=== PATIENT | male | born 1945 | race Caucasian/White ===

== ENCOUNTER 2024-07-22 18:53 | Inpatient (IN) | payer OTHER ==
[2024-07-22 20:58] LABS: BASO % 0.1 % (0-2.0); EOS % 0.2 % (0-4.5); HEMATOCRIT 29.2 % (35.4-49); HEMOGLOBIN 9.4 GM/dL (11.7-16.9); LYMPH % 4.6 % (8-40); MCH 28.7 pg (25.7-33.7); MCHC 32.3 g/dl (32.0-35.9); MEAN CELL VOLUME 88.9 fl (80-96); MEAN PLT VOLUME 7.7 fl (7.5-11.1); MONO % 6.2 % (3.8-10.2); NEUT % 88.9 % (42.8-82.8); PLATELET COUNT 157 10^3/uL (134-434); RBC 3.28 M/mm3 (4.00-5.60); RDW 17.8 % (11.9-15.9); WHITE BLOOD COUNT 6.7 K/mm3 (4.0-10.0)
[2024-07-22] MEDS ORDERED: CEFEPIME 2 GM/100 ML BAG IVPB ONE (21:04)
[2024-07-22] MEDS ORDERED: ALBUTEROL SO4 2.5/IPRATROPIUM 0.5 INH SOL 3 ML VIAL.NEB. NEB ONE ×2 (21:04→21:33)
[2024-07-22] MEDS ORDERED: methylPREDNISolone NA SUCC 125 MG/2 ML VIAL ONE (21:04)
[2024-07-22 21:06] LABS: INR 1.88 (0.83-1.09); PROTHROMBIN TIME (PATIENT) 21.2 SEC (9.7-13.0)
[2024-07-22 21:09] LABS: ACTIVATED PTT 33.8 SECONDS (25.2-36.5)
[2024-07-22] MEDS: methylPREDNISolone NA SUCC 125 MG/2 ML VIAL IVPUSH ONE (21:16)
[2024-07-22] MEDS: ALBUTEROL SO4 2.5/IPRATROPIUM 0.5 INH SOL 3 ML VIAL.NEB. NEB SCH (21:16)
[2024-07-22] MEDS: CEFEPIME HCL 2 GM VIAL (RESTRICTED TO ID) IVPB ONE (21:16)
[2024-07-22 21:18] LABS: VENOUS BASE EXCESS 0.4 mmol/L (-2-2); VENOUS O2 SATURATION 29.2 % (70-80); VENOUS PCO2 59.4 mmHg (38-52); VENOUS PH 7.287 (7.310-7.410)
[2024-07-22 21:24] LABS: POTASSIUM 5.2 mmol/L (3.5-5.1)
[2024-07-22 21:27] LABS: CALCIUM 8.1 mg/dL (8.5-10.1)
[2024-07-22 21:28] LABS: BLOOD UREA NITROGEN 45.4 mg/dL (7-18)
[2024-07-22 21:31] LABS: CREATININE 2.6 mg/dL (0.55-1.3)
[2024-07-22 21:32] LABS: BILIRUBIN,TOTAL 0.5 mg/dL (0.2-1); TOT PROT 6.5 g/dl (6.4-8.2)
[2024-07-22] MEDS ORDERED: ACETAMINOPHEN INJECTION 100 ML ONE (22:03)
[2024-07-22] MEDS: ACETAMINOPHEN 1000 MG/100 ML BAG IVPB ONE (22:06)
[2024-07-22] MEDS: VANCOMYCIN 1,000 MG in DEXTROSE 5%-WATER - 250 ML IVPB ONE (22:38)
[2024-07-22] MEDS ORDERED: VANCOMYCIN 1 GRAM (PRE-DOCKED) 1,000 MG/250 ML BAG IVPB ONE (22:38)
[2024-07-22 23:20] LABS: EPI CELLS 1 /uL (0-25.1); HYALINE CASTS 1 /uL (0-3.1); PH,URINE 5.5 (5.0-8.0); URINE APPEARANCE CLOUDY; URINE BACTERIA 4977 /uL (0-1359); URINE BILIRUBIN NEGATIVE (NEGATIVE); URINE COLOR YELLOW; URINE GLUCOSE (UA) NEGATIVE (NEGATIVE); URINE KETONE NEGATIVE (NEGATIVE); URINE LEUK ESTERASE 3+ (NEGATIVE); URINE NITRITE NEGATIVE (NEGATIVE); URINE PROTEIN 2+ (NEGATIVE); URINE RBC 8 /uL (0-23.9); URINE UROBILINOGEN 0.2 mg/dL (0.2-1.0); URINE WBC 648 /uL (0-25.8)
[2024-07-22] MEDS: SODIUM CHLORIDE 0.9% 500 ML INFUS.BAG IV ONE (23:47)
[2024-07-23 00:30] LABS: HEMATOCRIT 24.9 % (35.4-49); MCH 28.3 pg (25.7-33.7); MEAN CELL VOLUME 88.5 fl (80-96); MEAN PLT VOLUME 7.9 fl (7.5-11.1); PLATELET COUNT 141 10^3/uL (134-434); RBC 2.81 M/mm3 (4.00-5.60); RDW 17.4 % (11.9-15.9); WHITE BLOOD COUNT 6.5 K/mm3 (4.0-10.0)
[2024-07-23 00:34] LABS: VENOUS O2 SATURATION 93.2 % (70-80); VENOUS PCO2 57.3 mmHg (38-52); VENOUS PH 7.277 (7.310-7.410)
[2024-07-23] MEDS ORDERED: NOREPINEPHRINE BITARTRATE 4 MG/4 ML ML IV ONE ×2 (00:51→00:55)
[2024-07-23] MEDS: NOREPINEPHRINE BITARTRATE 4,000 MCG in DEXTROSE 5%-WATER - 496 ML IV SCH (01:14)
[2024-07-23] MEDS ORDERED: RAPID SEQUENCE INTUBATION KIT NR ONE ×2 (01:21→03:32)
[2024-07-23] MEDS ORDERED: PROPOFOL 1,000,000 MCG/100 ML VIAL ONE (03:53)
[2024-07-23] MEDS: ROCURONIUM BROMIDE 50 MG/5 ML VIAL IV ONE (03:53)
[2024-07-23] MEDS ORDERED: FENTANYL NS IVPB 500 MCG/100 ML BAG IVPB ONE (03:53)
[2024-07-23] MEDS: ETOMIDATE 40 MG/20 ML VIAL IVPUSH ONE (03:53)
[2024-07-23] MEDS: PROPOFOL 1,000,000 MCG/100 ML VIAL IVPB SCH (04:02)
[2024-07-23] MEDS: FENTANYL NS IVPB 500 MCG/100 ML BAG IVPB SCH (04:02)
[2024-07-23 05:15] LABS: ANISOCYTOSIS 3+; MACROCYTOSIS 2+; OVALOCYTE 1+; ROULEAU 1+
[2024-07-23 05:45] LABS: HEMATOCRIT 26.9 % (35.4-49); HEMOGLOBIN 8.6 GM/dL (11.7-16.9); MCH 28.7 pg (25.7-33.7); MEAN CELL VOLUME 89.5 fl (80-96); MEAN PLT VOLUME 7.8 fl (7.5-11.1); PLATELET COUNT 145 10^3/uL (134-434); RBC 3.01 M/mm3 (4.00-5.60); RDW 17.5 % (11.9-15.9)
[2024-07-23 05:52] LABS: INR 1.77 (0.83-1.09)
[2024-07-23 05:55] LABS: ACTIVATED PTT 32.8 SECONDS (25.2-36.5)
[2024-07-23 06:08] LABS: POTASSIUM 5.3 mmol/L (3.5-5.1)
[2024-07-23 06:11] LABS: ALBUMIN 2.6 g/dl (3.4-5.0); CALCIUM 7.6 mg/dL (8.5-10.1); MAGNESIUM 1.1 mg/dL (1.8-2.4)
[2024-07-23 06:14] LABS: CREATININE 2.4 mg/dL (0.55-1.3); PHOSPHOROUS 4.2 mg/dL (2.5-4.9)
[2024-07-23 06:15] LABS: BILIRUBIN,TOTAL 0.6 mg/dL (0.2-1); TOT PROT 5.5 g/dl (6.4-8.2)
[2024-07-23 06:17] LABS: N-TERMINAL BNP 8413.3 pg/ml (5-450)
[2024-07-23] MEDS: HYDROCORTISONE SOD SUCCINATE 100 MG/2 ML VIAL IVPUSH SCH (06:29)
[2024-07-23] MEDS: NOREPINEPHRINE 0.9 % NACL 8 MG/250 ML BAG IVPB SCH (07:00)
[2024-07-23 07:08] LABS: ARTERIAL BLD GAS O2 SATURATION 98.3 % (95-98); ARTERIAL BLOOD GAS BASE EXCESS -3.6 mmol/L (-2-2); ARTERIAL BLOOD GAS PO2 143.4 mmHg (80-100); ARTERIAL BLOOD GAS pH 7.216 (7.350-7.450)
[2024-07-23 07:12] LABS: VENT MODE A/C; VENT RATE 16
[2024-07-23 07:24] LABS: ANISOCYTOSIS 1+; MACROCYTOSIS 1+; ROULEAU 1+
[2024-07-23] MEDS: MUPIROCIN 2% TOPICAL OINTMENT FOR DECOLONIZATION NS SCH (09:30)
[2024-07-23] MEDS: HEPARIN NA (PORCINE) 5,000 UNITS/ML 1ML VIAL SQ SCH (09:30)
[2024-07-23] MEDS: MAGNESIUM 1GM/D5W 100ML - 100 ML IVPB IVPB ONE (09:30)
[2024-07-23] MEDS ORDERED: CEFEPIME HCL 1 GM VIAL (RESTRICTED TO ID) IVPB SCH (10:00)
[2024-07-23] MEDS ORDERED: PANTOPRAZOLE SOD 40 MG SUSPENSION PACKET PO SCH (10:00)
[2024-07-23] MEDS: PANTOPRAZOLE SODIUM 40 MG VIAL IVPUSH SCH (11:07)
[2024-07-23] MEDS: INSULIN ASPART SLIDING SCALE (NOVOLOG) 1 VIAL SQ SCH (11:07)
[2024-07-23 13:11] LABS: ARTERIAL BLD GAS O2 SATURATION 98.1 % (95-98); ARTERIAL BLOOD GAS BASE EXCESS -1.2 mmol/L (-2-2); ARTERIAL BLOOD GAS PO2 114.2 mmHg (80-100); ARTERIAL BLOOD GAS pH 7.384 (7.350-7.450)
[2024-07-23 13:13] LABS: VENT MODE A/C
[2024-07-23 13:14] LABS: VENT RATE 14
[2024-07-23] MEDS: VANCOMYCIN/WATER FOR INJ (PEG) 1,000 MG/200 ML BAG IVPB ONE (14:06)
[2024-07-23] MEDS: CEFEPIME 1 GM in DEXTROSE 5%-WATER 100 ML IVPB SCH (14:06)
[2024-07-23] MEDS ORDERED: FLUDROCORTISONE ACETATE 0.1 MG TABLET (FP) PO SCH (14:45)
[2024-07-23] MEDS: FLUDROCORTISONE ACETATE 0.1 MG TABLET (FP) PO SCH (16:11)
[2024-07-23] MEDS: SODIUM ZIRCONIUM CYCLOSILICATE (LOKELMA) 5 GM PACKET PO SCH (16:12)
[2024-07-23] MEDS: SODIUM CHLORIDE 0.45% 1,000 ML IV SCH (16:12)
[2024-07-23] MEDS: LACTATED RINGERS SOLUTION 1000 ML INFUS.BAG IV ONE (16:30)
[2024-07-23] MEDS: SODIUM ZIRCONIUM CYCLOSILICATE (LOKELMA) 5 GM PACKET GT ONE (17:11)
[2024-07-23] MEDS ORDERED: CEFEPIME 1 GM in DEXTROSE 5%-WATER 100 ML IVPB SCH (21:00)
[2024-07-23] MEDS: CHLORHEXIDINE GLUCONATE 4% CLEANSER FOR DECOLONIZATION TP SCH (21:40)
[2024-07-24] MEDS: FENTANYL NS IVPB 500 MCG/100 ML BAG IVPB SCH (04:00)
[2024-07-24 06:49] LABS: HEMATOCRIT 25.2 % (35.4-49); HEMOGLOBIN 8.3 GM/dL (11.7-16.9); MCH 28.7 pg (25.7-33.7); MEAN CELL VOLUME 87.1 fl (80-96); MEAN PLT VOLUME 8.1 fl (7.5-11.1); PLATELET COUNT 182 10^3/uL (134-434); RBC 2.89 M/mm3 (4.00-5.60); RDW 17.3 % (11.9-15.9); WHITE BLOOD COUNT 8.3 K/mm3 (4.0-10.0)
[2024-07-24 07:09] LABS: POTASSIUM 4.8 mmol/L (3.5-5.1)
[2024-07-24 07:11] LABS: ALBUMIN 2.2 g/dl (3.4-5.0); BLOOD UREA NITROGEN 48.9 mg/dL (7-18); CALCIUM 8.1 mg/dL (8.5-10.1); MAGNESIUM 1.4 mg/dL (1.8-2.4)
[2024-07-24 07:15] LABS: PHOSPHOROUS 3.8 mg/dL (2.5-4.9)
[2024-07-24 07:16] LABS: BILIRUBIN,TOTAL 0.3 mg/dL (0.2-1)
[2024-07-24 10:27] LABS: ANISOCYTOSIS 1+
[2024-07-24] MEDS: MAGNESIUM SULF 50% (8.12 MEQ/2 ML-1 GM VIAL) IVPB ONE (10:31)
[2024-07-24] MEDS: VANCOMYCIN/WATER FOR INJ (PEG) 1,000 MG/200 ML BAG IVPB ONE (12:56)
[2024-07-25 07:21] LABS: HEMATOCRIT 25.7 % (35.4-49); HEMOGLOBIN 8.4 GM/dL (11.7-16.9); MCH 28.9 pg (25.7-33.7); MCHC 32.5 g/dl (32.0-35.9); MEAN PLT VOLUME 8.5 fl (7.5-11.1); PLATELET COUNT 181 10^3/uL (134-434); RBC 2.89 M/mm3 (4.00-5.60); RDW 17.2 % (11.9-15.9); WHITE BLOOD COUNT 5.5 K/mm3 (4.0-10.0)
[2024-07-25 07:39] LABS: POTASSIUM 4.5 mmol/L (3.5-5.1)
[2024-07-25 07:45] LABS: CALCIUM 8.3 mg/dL (8.5-10.1)
[2024-07-25 07:46] LABS: MAGNESIUM 1.8 mg/dL (1.8-2.4)
[2024-07-25 07:47] LABS: ALBUMIN 2.2 g/dl (3.4-5.0); BLOOD UREA NITROGEN 45.9 mg/dL (7-18)
[2024-07-25 07:49] LABS: BILIRUBIN,TOTAL 0.3 mg/dL (0.2-1); CREATININE 1.7 mg/dL (0.55-1.3); TOT PROT 5.2 g/dl (6.4-8.2)
[2024-07-25 07:50] LABS: PHOSPHOROUS 3.8 mg/dL (2.5-4.9)
[2024-07-25] MEDS: MAGNESIUM SULFATE IN WATER 2 GM/50 ML IVPB IVPB ONE (08:18)
[2024-07-25] MEDS: ACETAMINOPHEN 325 MG TABLET (FP) PO PRN (09:59)
[2024-07-25] MEDS: VANCOMYCIN/WATER FOR INJ (PEG) 1,000 MG/200 ML BAG IVPB ONE (12:09)
[2024-07-26 06:51] LABS: EOS % 0.1 % (0-4.5); HEMATOCRIT 28.2 % (35.4-49); LYMPH % 8.9 % (8-40); MCH 28.6 pg (25.7-33.7); MEAN CELL VOLUME 89.4 fl (80-96); MEAN PLT VOLUME 8.2 fl (7.5-11.1); MONO % 4.5 % (3.8-10.2); NEUT % 86.5 % (42.8-82.8); PLATELET COUNT 202 10^3/uL (134-434); RBC 3.15 M/mm3 (4.00-5.60); RDW 17.6 % (11.9-15.9); WHITE BLOOD COUNT 5.6 K/mm3 (4.0-10.0)
[2024-07-26 06:52] LABS: POTASSIUM 4.8 mmol/L (3.5-5.1)
[2024-07-26 06:55] LABS: ALBUMIN 2.3 g/dl (3.4-5.0); CALCIUM 8.3 mg/dL (8.5-10.1)
[2024-07-26 06:56] LABS: BLOOD UREA NITROGEN 41.9 mg/dL (7-18); MAGNESIUM 2.2 mg/dL (1.8-2.4)
[2024-07-26 06:59] LABS: CREATININE 1.6 mg/dL (0.55-1.3)
[2024-07-26 07:00] LABS: BILIRUBIN,TOTAL 0.2 mg/dL (0.2-1); TOT PROT 5.3 g/dl (6.4-8.2)
[2024-07-26] MEDS ORDERED: HYDROCORTISONE SOD SUCCINATE 100 MG/2 ML VIAL IVPUSH SCH (08:45)
[2024-07-26] MEDS: TAMSULOSIN HCL 0.4 MG CAP PO SCH (09:57)
[2024-07-26] MEDS: HYDROCORTISONE SOD SUCCINATE 100 MG/2 ML VIAL IVPUSH SCH (09:57)
[2024-07-26] MEDS: VANCOMYCIN/WATER FOR INJ (PEG) 1,000 MG/200 ML BAG IVPB ONE (15:05)
[2024-07-27 08:48] LABS: ALBUMIN 2.3 g/dl (3.4-5.0); CALCIUM 8.9 mg/dL (8.5-10.1)
[2024-07-27 08:49] LABS: MAGNESIUM 2.2 mg/dL (1.8-2.4)
[2024-07-27 08:52] LABS: BILIRUBIN,TOTAL 0.3 mg/dL (0.2-1); CREATININE 1.4 mg/dL (0.55-1.3); PHOSPHOROUS 2.8 mg/dL (2.5-4.9)
[2024-07-27 08:53] LABS: HEMATOCRIT 32.3 % (35.4-49); HEMOGLOBIN 10.3 GM/dL (11.7-16.9); MCH 28.3 pg (25.7-33.7); MEAN CELL VOLUME 88.4 fl (80-96); MEAN PLT VOLUME 8.8 fl (7.5-11.1); PLATELET COUNT 237 10^3/uL (134-434); RBC 3.65 M/mm3 (4.00-5.60); RDW 17.3 % (11.9-15.9); TOT PROT 5.2 g/dl (6.4-8.2); WHITE BLOOD COUNT 7.9 K/mm3 (4.0-10.0)
[2024-07-27] MEDS: PANTOPRAZOLE SODIUM 40 MG VIAL IVPUSH SCH (09:08)
[2024-07-27] MEDS: HYDROCORTISONE SOD SUCCINATE 100 MG/2 ML VIAL IVPUSH SCH ×2 (09:08→12:23)
[2024-07-27] MEDS: CEFEPIME 1 GM in DEXTROSE 5%-WATER 100 ML IVPB SCH (09:08)
[2024-07-27] MEDS: TAMSULOSIN HCL 0.4 MG CAP PO SCH (09:09)
[2024-07-27] MEDS: HEPARIN NA (PORCINE) 5,000 UNITS/ML 1ML VIAL SQ SCH (09:11)
[2024-07-27 09:38] LABS: ANISOCYTOSIS 0; MACROCYTOSIS 0
[2024-07-27] MEDS: metoPROLOL SUCCINATE 25 MG TAB.SR.24H (FP) PO SCH (10:26)
[2024-07-27] MEDS: INSULIN ASPART SLIDING SCALE (NOVOLOG) 1 VIAL SQ SCH (11:31)
[2024-07-27] MEDS: VANCOMYCIN/WATER FOR INJ (PEG) 1,000 MG/200 ML BAG IVPB ONE (16:40)
[2024-07-28 10:03] LABS: CHLORIDE 109 mmol/L (98-107); POTASSIUM 5.9 mmol/L (3.5-5.1); SODIUM 137 mmol/L (136-145)
[2024-07-28 10:05] LABS: CALCIUM 9.2 mg/dL (8.5-10.1)
[2024-07-28 10:06] LABS: ALBUMIN 2.6 g/dl (3.4-5.0); ANION GAP 10 mmol/L (4-13); BLOOD UREA NITROGEN 31.7 mg/dL (7-18); CO2 18 mmol/L (21-32); GLUCOSE,RANDOM 150 mg/dL (74-106)
[2024-07-28 10:09] LABS: CREATININE 1.4 mg/dL (0.55-1.3); SGOT/AST 21 U/L (15-37); SGPT/ALT 13 U/L (13-61)
[2024-07-28 10:10] LABS: BILIRUBIN,TOTAL 0.5 mg/dL (0.2-1); TOT PROT 6.2 g/dl (6.4-8.2)
[2024-07-28 10:12] LABS: ALK PHOS 74 U/L (45-117)
[2024-07-28 10:23] LABS: MAGNESIUM 0.4 mg/dL (1.8-2.4)
[2024-07-28] MEDS: MAGNESIUM SULFATE IN WATER 2 GM/50 ML IVPB IVPB ONE (11:36)
[2024-07-28 12:40] LABS: HEMATOCRIT 32.5 % (35.4-49); HEMOGLOBIN 10.2 GM/dL (11.7-16.9); MCH 28.3 pg (25.7-33.7); MCHC 31.5 g/dl (32.0-35.9); MEAN CELL VOLUME 89.9 fl (80-96); MEAN PLT VOLUME 7.9 fl (7.5-11.1); PLATELET COUNT 301 10^3/uL (134-434); RBC 3.62 M/mm3 (4.00-5.60); RDW 17.4 % (11.9-15.9); WHITE BLOOD COUNT 12.1 K/mm3 (4.0-10.0)
[2024-07-28 13:16] LABS: ANISOCYTOSIS 0; MACROCYTOSIS 0
[2024-07-28] MEDS: SACUBITRIL/VALSARTAN 49 MG-51 MG TABLET PO SCH (13:49)
[2024-07-28] MEDS: MAGNESIUM OXIDE 400 MG TABLET (FP) PO ONE (13:49)
[2024-07-28] MEDS: APIXABAN 2.5 MG TABLET PO SCH (21:33)
[2024-07-29] MEDS: ACETAMINOPHEN 325 MG TABLET (FP) PO PRN (13:13)
[2024-07-30] MEDS: BENZOCAINE/MENTH/CETYLPYRD CL 1 EACH LOZENGE MM PRN (16:09)
[2024-07-31] MEDS ORDERED: SACUBITRIL/VALSARTAN 97 MG-103 MG TABLET PO SCH (10:00)
[2024-07-31] MEDS: amLODIPine BESYLATE 2.5 MG TABLET (FP) PO SCH (10:30)
[2024-07-31] MEDS: SACUBITRIL/VALSARTAN 49 MG-51 MG TABLET PO SCH (10:30)
[2024-07-31 12:08] LABS: HEMATOCRIT 32.4 % (35.4-49); HEMOGLOBIN 10.5 GM/dL (11.7-16.9); MCH 28.4 pg (25.7-33.7); MCHC 32.3 g/dl (32.0-35.9); MEAN CELL VOLUME 87.9 fl (80-96); MEAN PLT VOLUME 7.8 fl (7.5-11.1); PLATELET COUNT 304 10^3/uL (134-434); RBC 3.69 M/mm3 (4.00-5.60); RDW 17.7 % (11.9-15.9); WHITE BLOOD COUNT 13.3 K/mm3 (4.0-10.0)
[2024-07-31 12:23] LABS: POTASSIUM 4.7 mmol/L (3.5-5.1)
[2024-07-31 12:24] LABS: POTASSIUM 4.7 mmol/L (3.5-5.1)
[2024-07-31 12:26] LABS: ALBUMIN 2.5 g/dl (3.4-5.0); BLOOD UREA NITROGEN 25.1 mg/dL (7-18)
[2024-07-31 12:30] LABS: ALBUMIN 2.5 g/dl (3.4-5.0); BILIRUBIN,TOTAL 0.3 mg/dL (0.2-1); CALCIUM 8.9 mg/dL (8.5-10.1); CREATININE 1.3 mg/dL (0.55-1.3); TOT PROT 5.4 g/dl (6.4-8.2)
[2024-07-31 12:31] LABS: BLOOD UREA NITROGEN 24.5 mg/dL (7-18)
[2024-07-31 12:33] LABS: CREATININE 1.2 mg/dL (0.55-1.3)
[2024-07-31 12:35] LABS: BILIRUBIN,TOTAL 0.3 mg/dL (0.2-1); TOT PROT 5.3 g/dl (6.4-8.2)
[2024-08-01] MEDS: APIXABAN 2.5 MG TABLET PO SCH (09:21)
[2024-08-01] MEDS: PANTOPRAZOLE 40 MG TABLET PO SCH (09:21)
[2024-08-01] MEDS: TAMSULOSIN HCL 0.4 MG CAP PO SCH (09:21)
[2024-08-01 10:31] LABS: BASO % 0.2 % (0-2.0); EOS % 2.8 % (0-4.5); HEMATOCRIT 34.1 % (35.4-49); HEMOGLOBIN 10.6 GM/dL (11.7-16.9); LYMPH % 6.8 % (8-40); MCH 27.9 pg (25.7-33.7); MCHC 31.2 g/dl (32.0-35.9); MEAN CELL VOLUME 89.4 fl (80-96); MEAN PLT VOLUME 7.9 fl (7.5-11.1); MONO % 4.3 % (3.8-10.2); NEUT % 85.9 % (42.8-82.8); PLATELET COUNT 295 10^3/uL (134-434); RBC 3.81 M/mm3 (4.00-5.60); RDW 18.1 % (11.9-15.9); WHITE BLOOD COUNT 13.1 K/mm3 (4.0-10.0)
[2024-08-01 10:40] LABS: POTASSIUM 4.4 mmol/L (3.5-5.1)
[2024-08-01 10:41] LABS: CALCIUM 8.9 mg/dL (8.5-10.1)
[2024-08-01 10:42] LABS: BLOOD UREA NITROGEN 21.9 mg/dL (7-18)
[2024-08-01 10:45] LABS: CREATININE 1.2 mg/dL (0.55-1.3)
[2024-08-01] MEDS: INSULIN ASPART SLIDING SCALE (NOVOLOG) 1 VIAL SQ SCH (11:48)
[2024-08-01] MEDS: APIXABAN 5 MG TABLET PO SCH (21:05)
[2024-08-02] MEDS: ACETAMINOPHEN 325 MG TABLET (FP) PO PRN (02:26)
[2024-08-02 09:20] LABS: BASO % 0.3 % (0-2.0); HEMATOCRIT 34.7 % (35.4-49); HEMOGLOBIN 11.2 GM/dL (11.7-16.9); LYMPH % 7.1 % (8-40); MCH 28.4 pg (25.7-33.7); MCHC 32.3 g/dl (32.0-35.9); MEAN CELL VOLUME 87.9 fl (80-96); MEAN PLT VOLUME 7.6 fl (7.5-11.1); MONO % 5.4 % (3.8-10.2); NEUT % 85.2 % (42.8-82.8); PLATELET COUNT 274 10^3/uL (134-434); RBC 3.94 M/mm3 (4.00-5.60); RDW 17.6 % (11.9-15.9); WHITE BLOOD COUNT 12.1 K/mm3 (4.0-10.0)
[2024-08-02 09:43] LABS: POTASSIUM 4.4 mmol/L (3.5-5.1)
[2024-08-02 09:46] LABS: CALCIUM 9.2 mg/dL (8.5-10.1)
[2024-08-02 09:47] LABS: BLOOD UREA NITROGEN 20.8 mg/dL (7-18)
[2024-08-02 09:50] LABS: CREATININE 1.3 mg/dL (0.55-1.3)
[2024-08-02 14:16] VITALS: BMI 31.9
[2024-08-03] MEDS: amLODIPine BESYLATE 5 MG TABLET (FP) PO SCH (10:09)
[2024-08-03 21:30] VITALS: RESP 20
[2024-08-04 09:27] VITALS: BP 133/77; PULSE 76; TEMP 97.9
== END 2024-08-04 15:22 | DRG 871 ==
LOC: JER 18:53 → JERBED 07-23 00:37 → JICU 07-23 03:09 → J4S 07-26 20:26 → J6S 07-31 11:31
PROVIDERS: ADMIT Internal Medicine Pulmonary Disease; ATTEND Internal Medicine
PROC: 5A1945Z Respiratory Ventilation, 24-96 Consecutive Hours (ICD-10-PCS; principal; 2024-07-23)
PROC: 0BH17EZ Insertion of Endotracheal Airway into Trachea, Via Natural or Artificial Opening (ICD-10-PCS; 2024-07-23)
PROC: 4A133B1 Monitoring of Arterial Pressure, Peripheral, Percutaneous Approach (ICD-10-PCS; 2024-07-23)
PROC: 4A133J1 Monitoring of Arterial Pulse, Peripheral, Percutaneous Approach (ICD-10-PCS; 2024-07-23)
PROC: 05HN33Z Insertion of Infusion Device into Left Internal Jugular Vein, Percutaneous Approach (ICD-10-PCS; 2024-07-23)
PROC: B544ZZA Ultrasonography of Left Jugular Veins, Guidance (ICD-10-PCS; 2024-07-23)
DX: A41.9 Sepsis, unspecified organism (principal); J18.9 Pneumonia, unspecified organism; J96.02 Acute respiratory failure with hypercapnia; R65.21 Severe sepsis with septic shock; J96.01 Acute respiratory failure with hypoxia; N39.0 Urinary tract infection, site not specified; N17.9 Acute kidney failure, unspecified; I50.22 Chronic systolic (congestive) heart failure; I47.10 Supraventricular tachycardia, unspecified; H57.89 Other specified disorders of eye and adnexa; E11.51 Type 2 diabetes mellitus with diabetic peripheral angiopathy without gangrene; I11.0 Hypertensive heart disease with heart failure; E78.5 Hyperlipidemia, unspecified; E87.5 Hyperkalemia; I48.0 Paroxysmal atrial fibrillation; B96.20 Unspecified Escherichia coli [E. coli] as the cause of diseases classified elsewhere
CPT/HCPCS: 0241U-QW; 31500; 36415; 36600; 70450-TC; 71045-TC-FY; 74176-TC; 80048; 80053; 81003; 82150; 82308; 82436; 82550; 82570; 82728; 82803; 82962; 83036; 83605; 83615; 83690; 83735; 83880; 83930; 83935; 84100; 84133; 84300; 84436; 84443; 84484; 85025; 85027; 85610; 85730; 86850; 86900; 86901; 87040; 87070; 87081; 87086; 87186; 87205; 87899; 93005; 93010; 93306-TC; 93971; 94002; 94660; 97116-GP; 97161-GP; 99291; G0480; J0131; J1644